=== PATIENT | male | born 1965 ===

== ENCOUNTER 2020-11-17 15:17 | Outpatient (REF) | payer SELFPAY ==
[2020-11-17 16:42] LABS: Cholesterol 244 mg/dL
== END 2020-11-17 15:18 | disposition home or self-care (01) ==
LOC: HO.LNC 15:17
PROVIDERS: Visit Provider Pathology Anatomic Pathology & Clinical Pathology
DX: Z13.89 Encounter for screening for other disorder (principal)
CPT/HCPCS: 36415; 82465